=== PATIENT | female | born 1990 | race Caucasian/White ===

== ENCOUNTER 2019-11-08 15:12 | Emergency (ER) | payer OTHER ==
[~2019-11-08] VITALS: Ht 160 cm; Wt 68.0 kg
== END 2019-11-08 15:59 | disposition left against medical advice (07) ==
LOC: ED 15:12
DX: Z53.21 Procedure and treatment not carried out due to patient leaving prior to being seen by health care provider (principal); R51 Headache

== ENCOUNTER 2020-08-23 13:57 | Emergency (ER) | payer OTHER ==
[~2020-08-23] VITALS: Ht 160 cm; Wt 68.0 kg
[~2020-08-23 13:57] MED LIST: BUPRENORPHIN-N1 EACH SL; CLONIDINE HCL0.1 MG PO
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
== END 2020-08-23 14:50 | disposition left against medical advice (07) ==
LOC: ED 13:57
DX: R51.9 Headache, unspecified (principal); Z53.21 Procedure and treatment not carried out due to patient leaving prior to being seen by health care provider; F17.200 Nicotine dependence, unspecified, uncomplicated
CPT/HCPCS: 99283